=== PATIENT | female | born 1970 | race Caucasian/White ===

== ENCOUNTER → 2020-04-29 11:42 | Outpatient (CLI) | payer OTHER, SELFPAY ==
--- NOTE | ~2020-04-29 | US_ITS ---
EXAMINATION: US thyroid DATE: 04/29/2020 12:01 INDICATION: Nontoxic single thyroid nodule. TECHNIQUE: Multiple ultrasound images of the thyroid were obtained. COMPARISON: Ultrasound 09/10/2017, 08/29/2017 FINDINGS: The right thyroid lobe measures 5.3 x 2.2 x 2.5 cm. The left thyroid lobe measures 4.7 x 2.1 x 2.2 c m. In the right thyroid lobe, there is an 8 mm solid, hypoechoic, ypnng-yxbt-ynnn nodule with ill-de fined margin without echogenic foci (TI-RADS TR4). In the right thyroid lobe, there is a 10 mm solid, hypoechoic, rtttm-qejy-gljz nodule with ill-defined margin without echogenic foci (TR4). In the left thyroid lobe, there is a 1.7 cm solid, hypoechoic, obqih-uenh-dbep nodule with ill-defined margin wi thout echogenic foci (TR4) that is stable from 09/10/2017 when it demonstrated benign pathology. Ther e are subcentimeter nodules in left thyroid lobe. IMPRESSION: 1. Thyroid nodules, stable from 08/29/17. Consider thyroid ultrasound in 2 years. Reviewed, dictated and finalized at location A. IMPRESSION: 1. Thyroid nodules, stable from 08/29/17. Consider thyroid ultrasound in 2 year s.
== END ==
PROVIDERS: Visit Provider Nurse Practitioner Family
DX: E04.2 Nontoxic multinodular goiter (principal)
CPT/HCPCS: 76536

== ENCOUNTER 2020-08-09 07:26 | Emergency (ER) | payer OTHER, SELFPAY ==
--- NOTE | ~2020-08-09 | XR_ITS ---
EXAMINATION: XR lumbar spine 2-3V EXAM DATE: 08/09/2020 07:59 INDICATION: Pain Bending With Acute Popping And Pain . TECHNIQUE: Lumber spine frontal, lateral, lateral L5-S1 projections for interpretation. There is no prior study for comparison. FINDINGS: Mild lumbar disc disease and facet arthropathy. There are no acute fractures identified. Th e vertebral bodies are aligned in the AP dimension. Sacrum, sacroiliac joints, sacral arcuate lines a re intact. Paraspinal soft tissue is unremarkable. No endplate erosive change. There are cholecystect [place] clips. IMPRESSION: Mild spondylosis. No acute findings. Reviewed, dictated and finalized at location A. TIONAL ED INSTRUCTOR
[2020-08-09 07:42] VITALS: BP 131/99; PULSE 65; RESP 18; TEMP 35.7; O2SAT 100
--- NOTE | 2020-08-09 07:43 | ED.BACK ---
HPI - Back Pain/Injury General Chief Complaint: Back Pain/Injury Stated Complaint: back pain Time Seen by Provider: 08/09/20 07:39 Source: patient Mode of arrival: ambulatory Limitations: no limitations History of Present Illness HPI Narrative: Patient is a 50-year-old female complaining of low back pain, 8 out of 10, aching, nonradiating, worse with movement, started this morning after bending over to order picker her dog. Patient denies any weakness, numbness, incontinence or fever. Patient denies any urinary symptoms. Patient denies abdominal pain. Related Data Allergies Allergy/AdvReac Type Severity Reaction Status Date / Time Quinolones Allergy Mild Unknown Verified 08/09/20 07:45 levofloxacin Allergy Unknown Unknown Verified 08/09/20 07:45 Sulfa (Sulfonamide Allergy Unknown Unknown Verified 08/09/20 07:45 Antibiotics) Review of Systems Review of Systems: All systems reviewed & are unremarkable except as noted in HPI and below Constitutional: Constitutional: Denies body ache(s), Denies chills, Denies excessive sweating, Denies fatigue, Denies fever(s), Denies headache(s), Denies lethargy, Denies malaise, Denies weakness and Denies weight loss Eyes: Eyes: Denies blurry vision, Denies change in vision and Denies loss of vision ENT: Denies dizziness, Denies ear discharge, Denies headache(s), Denies lip swelling, Denies epistaxis, Denies nasal congestion, Denies neck pain, Denies throat swelling and Denies tongue swelling Cardiovascular: Cardiovascular: Denies chest pain, Denies chest pain at rest, Denies chest pain with activity, Denies diaphoresis, Denies rapid heart rate, Denies edema, Denies irregular heart rhythm, Denies lightheadedness, Denies palpitations, Denies dyspnea and Denies dyspnea on exertion Respiratory: Respiratory: Denies chest congestion, Denies cough, Denies hemoptysis, Denies dyspnea and Denies dyspnea on exertion Gastrointestinal: Gastrointestinal: Denies abdominal pain, Denies melena, Denies hematochezia, Denies diarrhea, Denies nausea, Denies vomiting and Denies hematemesis Musculoskeletal: Musculoskeletal: Denies abnormal gait, Denies deformity, Denies joint swelling, Denies neck pain and Denies numbness Neurologic: Denies Abnormal speech present, Denies abnormal gait, Denies confusion, Denies dizziness, Denies headache(s), Denies focal weakness, Denies loss of vision, Denies numbness, Denies Other visual disturbances, Denies Sensory deficit (Neuro) and Denies weakness Psychiatric: Psychiatric: Denies confusion, Denies depression, Denies auditory hallucinations, Denies homicidal ideation and Denies suicidal ideation Endocrine: Endocrine: Denies cold intolerance, Denies excessive sweating, Denies fatigue, Denies heat intolerance and Denies palpitations Hematologic/Lymphatic: Hematologic/Lymphatic: Denies easy bleeding and Denies easy bruising Allergic/Immunologic: Allergic/Immunologic: Denies lip swelling, Denies throat swelling and Denies tongue swelling PMFSH Family History Family History Father Hypertension Mother Hypertension Grandparent Hypertension Family history of malignant neoplasm of cervix Diabetes mellitus Other Carcinoma of colon Family history of malignant neoplasm of breast in first degree relative Family history of obesity Family history of thyroid disease Social History Social History Smoking status: Never smoker Alcohol intake: current Exam Const: General: cooperative, healthy appearing, comfortable, no acute distress, well developed, alert and awake; No confusion Orientation/consciousness: oriented to person, oriented to place, oriented to time, patient oriented x3 and No confusion Limitations: no limitations HENMT: Head: normal to inspection, normocephalic and atraumatic Ears: hearing grossly normal bilaterally, TM normal on the right and TM no
[2020-08-09] MEDS: diazePAM INJ (*CRX) 10 MG/2 ML SYRINGE 5 MG IM (08:04)
[2020-08-09] MEDS: HYDROcodone/acetaminophen (*CRX) 5-325 MG TABLET 1 TAB PO (08:05)
[2020-08-09] MEDS: KETOROLAC (*BKC) 60 MG/2 ML VIAL 30 MG IM (08:05)
[2020-08-09] MEDS: ONDANSETRON HCL ODT 4 MG TABLET PO (09:13)
[2020-08-09 09:53] VITALS: BP 124/72; PULSE 48; RESP 16
== END 2020-08-09 09:53 | disposition home or self-care (01) ==
PROVIDERS: Emergency Provider Emergency Medicine; PCP Family Medicine
DX: S39.012A Strain of muscle, fascia and tendon of lower back, initial encounter (principal); X50.0XXA Overexertion from strenuous movement or load, initial encounter
CPT/HCPCS: 72100; 96372; 99284; A9270; J1885; J3360

== ENCOUNTER → 2020-10-13 14:55 | Outpatient (CLI) | payer OTHER, SELFPAY ==
--- NOTE | ~2020-10-13 | XR_ITS ---
EXAMINATION: XR knee RT 3V EXAM DATE: 10/13/2020 15:06 INDICATION: M25.569 - Pain in unspecified knee . RT knee gave out and pt fell in May 2020 RT anterior knee pain x 2 weeks. No prior surg or fx to Rt knee TECHNIQUE: Three projections of the right knee. There is no prior study for comparison. FINDINGS: No evidence osteochondral defect or joint body in the right knee joint. There are no acut e fractures or dislocations identified. There is no subcutaneous gas. Trace joint fluid. There are no radiopaque foreign bodies. There is minimal primary osteoarthritis. IMPRESSION: Minimal right knee osteoarthritis. Reviewed, dictated and finalized at location B. VATOR BACKHOE OPERATOR
== END ==
PROVIDERS: PCP Family Medicine; Visit Provider Nurse Practitioner Family
DX: M25.569 Pain in unspecified knee (principal)
CPT/HCPCS: 73562

== ENCOUNTER 2021-03-16 15:40 | Outpatient (CLI) | payer OTHER, SELFPAY ==
--- NOTE | ~2021-03-16 | MM_ITS ---
EXAMINATION: MM screening [facility] BI w bj HISTORY: Screening mammogram TECHNIQUE: Craniocaudal and mediolateral oblique 3-D tomosynthesis images were obtained and synthetic 2-D images were generated. CAD analysis was submitted and interpreted. COMPARISON: 03/19/2019, 03/05/2019, 01/16/2015 BREAST PARENCHYMAL COMPOSITION: The breasts are heterogeneously dense, which may obscure small masses . FINDINGS: There is no evidence of suspicious mass, calcification, or architectural distortion to sugg est malignancy in either breast. There has been no suspicious interval change. IMPRESSION: 1. No mammographic evidence of malignancy. 2. Recommend routine screening mammography in one year. BI-RADS Category 1: Negative Reviewed, dictated and finalized at location A.
== END 2021-03-16 15:41 | disposition home or self-care (01) ==
LOC: ANHIMG 15:43
PROVIDERS: PCP Family Medicine; Visit Provider Advanced Practice Midwife
DX: Z12.31 Encounter for screening mammogram for malignant neoplasm of breast (principal)
CPT/HCPCS: 77063; 77067